=== PATIENT | female | born 1995 | race Caucasian/White ===

== ENCOUNTER 2017-03-12 18:00 | Emergency (ER) | payer OTHER ==
[2017-03-12 18:10] VITALS: BP 128/75
--- NOTE | 2017-03-12 18:53 | RAD ---
HISTORY: Cough, pneumonia COMPARISONS: None VIEWS: 2: Frontal dual-energy and lateral views of the chest. FINDINGS: CARDIOMEDIASTINAL SILHOUETTE: The cardiomediastinal silhouette is normal. SHAGGY: The shaggy are normal. PLEURA: The costophrenic angles are sharp. No pleural abnormalities are noted. LUNG PARENCHYMA: The lungs are clear. ABDOMEN: The upper abdomen is clear. There is no subphrenic gas. BONES AND SOFT TISSUES: No bone or soft tissue abnormalities are noted. OTHER: None. IMPRESSION: NO ACTIVE CARDIOPULMONARY DISEASE.
--- NOTE | 2017-03-12 22:49 | UC ---
Marcus Mera SooYoung, scribed for Robert Lazo MD on 03/12/17 at 1819 . Respiratory Complaint HPI - HPI Summary HPI Summary: A 21 y/o F presents to [facility] with c/o ongoing, nonproductive cough for past 10 days. Associated sx: CP associated to the cough. Denies: wheezing, SOB, fever, chills, bloody cough, rhinorrhea. Aggravating factors: laying down. She's been having difficulty sleeping due to the coughing. Has not been around anyone sick lately. Denies daily medications. Non-smoker. - History of Current Complaint Chief Complaint: UCRespiratory Stated Complaint: URI Time Seen by Provider: 03/12/17 18:18 Hx Obtained From: Patient Hx Last Menstrual Period: 02/27/17 Onset/Duration: Lasting Weeks - 10 days, Still Present Timing: Intermittent Episodes Severity Initially: Mild Severity Currently: Mild Pain Intensity: 0 Pain Scale Used: 0-10 Numeric Character: Cough: Nonproductive Aggravating Factors: Recumbent Position - Allergies/Home Medications Allergies/Adverse Reactions: Allergies Allergy/AdvReac Type Severity Reaction Status Date / Time No Known Allergies Allergy Verified 03/12/17 18:10 PMH/Surg Hx/FS Hx/Imm Hx Previously Healthy: Yes - neg: asthma - Surgical History Surgical History: None - Social History Alcohol Use: None Substance Use Type: None Smoking Status (MU): Never Smoked Tobacco - Immunization History Vaccination Up to Date: Yes Review of Systems Respiratory: Cough Cardiovascular: Chest Pain - due to constant cough All Other Systems Reviewed And Are Negative: Yes Physical Exam Triage Information Reviewed: Yes Vital Signs: Initial Vital Signs Temp 98.2 F 03/12/17 18:08 Pulse 67 03/12/17 18:08 Resp 16 03/12/17 18:08 BP 128/75 03/12/17 18:08 Pulse Ox 100 03/12/17 18:08 Vital Signs Reviewed: Yes - Additional Comments The patient is well-nourished in no acute distress and in no acute pain. The skin is warm and dry and skin color reflects adequate perfusion. HEENT: The head is normocephalic and atraumatic. The pupils are equal and reactive. The conjunctivae are clear and without drainage. Nares are patent and without drainage. Mouth reveals moist mucous membranes and the throat is without erythema and exudate. The external ears are intact. The ear canals are patent and without drainage. The tympanic membranes are intact. Neck is supple with full range of motion and non-tender. There are no carotid bruits. There is no neck vein distension. NO ADENOPATHY. Respiratory: Chest is non-tender. DECREASED BREATH SOUNDS. NO WHEEZING, RALES OR RHONCHI. Cardiovascular: Hear is regular rate and rhythm. There is no murmur or rub auscultated. There is no peripheral edema and pulses are symmetrical and equal. Abdomen: The abdomen is soft and non-tender. There are normal bowel sounds heard in all four quadrants and there is no organomegaly palpated. Musculoskeletal: There is no back pain noted. Extremities are non-tender with full range of motion. There is good capillary refill. There is no peripheral edema or calf tenderness elicited. Neurological: Patient is alert and oriented to person, place and time. The patient has symmetrical motor strength in all four extremities. Cranial nerves are grossly intact. Deep tendon reflexes are symmetrical and equal in all four extremities. Psychiatric: The patient has an appropriate affect and does not exhibit any anxiety or depression. UC Diagnostic Evaluation - Laboratory O2 Sat by Pulse Oximetry: 100 - Radiology Xray Interpretation: No Acute Changes - Impression: No active cardiopulmonary dz. Radiology Interpretation Completed By: Radiologist Respiratory Course/Dx - Course Course Of Treatment: Medications reviewed this visit. Normal BP reading and no follow-up instructions required. - Differential Dx/Diagnosis Differential Diagnosis/HQI/PQRI: Bronchitis, Lower Resp Infection Provider Diagnoses: Bronchitis Discharge - Discharge Plan Condition: Stable Disposition: HOME Prescriptions: Azithromycin TAB* [Zithromax TAB (Z-ROULA) 250 mg #6 tabs] 2 tab PO .TODAY, THEN 1 DAILY #1 roula Guaifenesin-Codeine [Guaiatussin AC] 10 syp PO Q6HR #120 syp MDD 40 Patient Education Materials: Azithromycin (By mouth), Acute Bronchitis (ED), Narcotic-Antitussive/Expectorant (By mouth) Referrals: Tommy Iqbal MD [Primary Care Provider] - The documentation as recorded by the Marcus chandler SooYoung accurately reflects the service I personally performed and the decisions made by me, Robert Lazo MD.
== END 2017-03-12 19:45 | disposition home or self-care (01) ==
LOC: UCEAST 18:00
DX: J40 Bronchitis, not specified as acute or chronic (principal)
CPT/HCPCS: 71020; 99212; G0463

== ENCOUNTER 2018-04-22 17:00 | Emergency (ER) | payer OTHER ==
[2018-04-22 17:15] VITALS: BP 122/79
--- NOTE | 2018-04-22 17:28 | UC ---
Lower Extremity/Ankle HPI - HPI Summary HPI Summary: This pt is a 22 y/o female presenting to [facility] c/o right second toe pain x6 days. Pt reports she was in heels all day 6 days ago. She denies any trauma or injuries. Since then pt states she has had right second toe pain. She rates her pain 6 out of 10 in severity. Denies fever, chills, knee pain. Denies any PMHx. - History of Current Complaint Chief Complaint: UCLowerExtremity Stated Complaint: TOE INJURY Time Seen by Provider: 04/22/18 17:17 Hx Obtained From: Patient Hx Last Menstrual Period: 02/27/17 Onset/Duration: Lasting Days, Still Present Severity Currently: Moderate Pain Intensity: 6 Pain Scale Used: 0-10 Numeric Aggravating Factor(s): Nothing Alleviating Factor(s): Nothing Able to Bear Weight: Yes - Allergies/Home Medications Allergies/Adverse Reactions: Allergies Allergy/AdvReac Type Severity Reaction Status Date / Time No Known Allergies Allergy Verified 04/22/18 17:15 PMH/Surg Hx/FS Hx/Imm Hx Other Endocrine History: DENIES: diabetes Other Cardiovascular History: DENIES: HTN - Surgical History Surgical History: None - Family History Known Family History: Negative: Cardiac Disease, Hypertension, Diabetes Family History: Mother: appendectomy - Social History Alcohol Use: None Substance Use Type: None Smoking Status (MU): Never Smoked Tobacco - Immunization History Vaccination Up to Date: Yes Review of Systems Constitutional: Negative Skin: Negative Eyes: Negative ENT: Negative Respiratory: Negative Cardiovascular: Negative Gastrointestinal: Negative Genitourinary: Negative Motor: Negative Neurovascular: Negative Musculoskeletal: Other: - R second toe pain Neurological: Negative Psychological: Negative All Other Systems Reviewed And Are Negative: Yes Physical Exam - Summary Physical Exam Summary: VITAL SIGNS: Reviewed. GENERAL: Patient is a well-developed and nourished female who is lying comfortable in the stretcher. Patient is not in any acute respiratory distress. HEAD AND FACE: Normocephalic EYES: PERRLA, EOMI x 2. EARS: Hearing grossly intact. MOUTH: Oropharynx within normal limits. NECK: Supple, trachea is midline, no adenopathy, no JVD, no carotid bruit. CHEST: Symmetric, no tenderness at palpation LUNGS: Clear to auscultation bilaterally. No wheezing or crackles. CVS: Regular rate and rhythm, S1 and S2 present, no murmurs or gallops appreciated. ABDOMEN: Soft, non-tender. Bowel sounds are normal. No abdominal abnormal pulsations. EXTREMITIES: Full ROM in all major joints, no edema, no cyanosis or clubbing. RLE: no ecchymosis, no hematoma, no deformity. NEURO: Alert and oriented x 3. No acute neurological deficits. Speech is normal and follows commands. SKIN: Dry and warm Triage Information Reviewed: Yes Vital Signs: Initial Vital Signs Temp 99.3 F 04/22/18 17:10 Pulse 85 04/22/18 17:10 Resp 16 04/22/18 17:10 BP 122/79 04/22/18 17:10 Pulse Ox 100 04/22/18 17:10 Vital Signs Reviewed: Yes Diagnostics - Radiology Right foot XR Xray Interpretation: No Acute Changes - IMPRESSION: No evidence for fracture. Dr. Valentin has reviewed this radiology report. Radiology Interpretation Completed By: Radiologist Lower Extremity Course/Dx - Course Course Of Treatment: Pt is a 22 y/o female presenting to [facility] c/o right second toe pain x6 days. Pt reports she was in heels all day 6 days ago. She denies any trauma or injuries. Since then pt states she has had right second toe pain. She rates her pain 6 out of 10 in severity. Denies any PMHx. In the UC course the pt was given ibuprofen for the pain. Right foot XR shows no evidence for fracture. Therefore pt will be discharged home with a post-op shoe and a prescription for Naproxen. Pt was instructed to return to the urgent care or go to ER immediately if any of the symptoms worsen. Plan of care was discussed with the patient and pt understands and agrees. All questions were answered to patient satisfaction. There were no further complaints or concerns. Pt will be discharged to home with follow up from PCP. Pt is hemodynamically stable, alert and oriented x3. - Differential Dx/Diagnosis Provider Diagnoses: Toe pain Discharge - Sign-Out/Discharge Documenting (check all that apply): Patient Departure - Discharge - Discharge Plan Condition: Stable Disposition: HOME Prescriptions: Naproxen [Naprosyn 500 mg tab] 500 mg PO BID #20 tablet Patient Education Materials: Arthralgia (ED) Referrals: Tommy Iqbal MD [Primary Care Provider] - Additional Instructions: Take Acetaminophen or ibuprofen for pain or fever Increase your fluid intake Return to the UC or go to the emergency department if symptoms worsen Follow-up with primary care physician in next 2-3 days
--- NOTE | 2018-04-22 17:53 | RAD ---
INDICATION: Right foot pain. TECHNIQUE: 2 views of the right foot were obtained. FINDINGS: The bones are normal alignment. No fracture is seen. Joint spaces appear maintained. IMPRESSION: NO EVIDENCE FOR FRACTURE.
[2018-04-22] MEDS ORDERED: Ibuprofen TAB* 400 MG PO ONE (18:16)
== END 2018-04-22 18:32 | disposition home or self-care (01) ==
LOC: UCEAST 17:00
DX: M79.674 Pain in right toe(s) (principal)
CPT/HCPCS: 99212; A9270-GY; G0463

== ENCOUNTER 2018-06-11 00:21 | Emergency (ER) | payer SELFPAY ==
[2018-06-11] MEDS ORDERED: Ondansetron ODT TAB* 4 MG SL ONE (00:41)
[2018-06-11] MEDS ORDERED: Ondansetron ODT TAB* 4 MG PO ONE (00:48)
--- NOTE | 2018-06-11 01:37 | ED ---
Substance Abuse/Use - HPI Summary HPI Summary: 22-year-old female presents wit nausea and vomiting today. States she had a marijuana cookie. States it started after that. She felt tired so she took a nap. States she woke up and she felt like her heart was racing. Her heart is now not racing. She admits to numbness and tingling in all extremities. She denies any shortness breath. Denies any bowel pain. States she's vomited a couple times. States she just doesn't feel right. States she feels out of it. She admits to mild headache. no fevers. she has never had these symptoms before. She has never had marijuana before. no one else with similar symptoms. she denies any other substance. - History Of Current Complaint Chief Complaint: EDTraceeuseaVomitDiarrh Stated Complaint: NAUSEA/VOMITING Time Seen by Provider: 06/11/18 00:30 Hx Last Menstrual Period: 02/27/17 - Allergies/Home Medications Allergies/Adverse Reactions: Allergies Allergy/AdvReac Type Severity Reaction Status Date / Time No Known Allergies Allergy Verified 06/11/18 00:25 PMH/Surg Hx/FS Hx/Imm Hx Endocrine/Hematology History: Denies: Hx Diabetes, Hx Thyroid Disease Cardiovascular History: Denies: Hx Hypertension Respiratory History: Denies: Hx Asthma, Hx Chronic Obstructive Pulmonary Disease (COPD) GI History: Denies: Hx Ulcer Infectious Disease History: No Infectious Disease History: Denies: Hx Clostridium Difficile, Hx Hepatitis, Hx Human Immunodeficiency Virus (HIV), Hx of Known/Suspected MRSA, Hx Tuberculosis, Hx Known/Suspected VRE , History Other Infectious Disease, Traveled Outside the [place] in Last 30 Days - Family History Known Family History: Negative: Cardiac Disease, Hypertension, Diabetes Family History: Mother: appendectomy - Social History Alcohol Use: None Substance Use Type: Reports: Marijuana Substance Use Comment - Amount & Last Used: marijuana cookie ingestion Smoking Status (MU): Never Smoked Tobacco Review of Systems Negative: Fever Negative: Chest Pain Negative: Shortness Of Breath Positive: Vomiting, Nausea. Negative: Abdominal Pain, Diarrhea Positive: Paresthesia All Other Systems Reviewed And Are Negative: Yes Physical Exam Triage Information Reviewed: Yes Vital Signs On Initial Exam: Initial Vitals Temp Pulse Resp BP Pulse Ox 99.2 F 87 20 131/72 100 06/11/18 00:24 06/11/18 00:24 06/11/18 00:24 06/11/18 00:24 06/11/18 00:24 Vital Signs Reviewed: Yes Appearance: Positive: Well-Appearing Skin: Positive: Warm, Dry Head/Face: Positive: Normal Head/Face Inspection Eyes: Positive: Normal, Conjunctiva Clear ENT: Positive: Pharynx normal Respiratory/Lung Sounds: Positive: Clear to Auscultation, Breath Sounds Present Cardiovascular: Positive: Normal, RRR Abdomen Description: Positive: Nontender, Soft Bowel Sounds: Positive: Present Musculoskeletal: Positive: Normal Neurological: Positive: Sensory/Motor Intact, CN Intact II-III Psychiatric: Positive: Normal Diagnostics - Vital Signs Vital Signs Temp Pulse Resp BP Pulse Ox 06/11/18 00:40 92 118/76 96 06/11/18 00:39 86 96 06/11/18 00:24 99.2 F 87 20 131/72 100 - Laboratory Lab Statement: Any lab studies that have been ordered have been reviewed, and results considered in the medical decision making process. Re-Evaluation - Re-Evaluation First Eval Re-Evaluation Time: 01:56 Change: Improved Comment: no longer nausous, is tired. discussed with dad will take home to sleep it off Course/Dx - Course Course Of Treatment: 22-year-old female presents wit nausea and vomiting today. States she had a marijuana cookie. States it started after that. She felt tired so she took a nap. States she woke up and she felt like her heart was racing. Her heart is now not racing. She admits to numbness and tingling in all extremities. She denies any shortness breath. Denies any bowel pain. States she's vomited a couple times. States she just doesn't feel right. States she feels out of it. She admits to mild headache. no fevers. she has never had these symptoms before. She has never had marijuana before. no one else with similar symptoms. On exam patient appears groggy. Normal neuro exam. Lungs clear to auscultation. Heart regular rate and rhythm. Abdomen soft nontender. Gave Zofran and able to tolerate some mitzi jeanine. Discussed with dad that symptoms are due to the marijuana. Discussed that these are normal symptoms of ingestion and vital here are stable. told dad to have her get some rest. Dad understands agrees with plan. - Diagnoses Differential Diagnosis/HQI/PQRI: Positive: Alcohol Abuse, Anxiety, Drug Abuse Provider Diagnoses: Adverse effect of cannabis Discharge - Sign-Out/Discharge Documenting (check all that apply): Patient Departure - Discharge Plan Condition: Good Disposition: HOME Patient Education Materials: Cannabis Abuse (ED) Referrals: Tommy Iqbal MD [Primary Care Provider] - Additional Instructions: take zofran every 6 hours as needed for nausea Encourage fluids Take a hot shower Return to ED if develop any new or worsening symptoms - Billing Disposition and Condition Condition: GOOD Disposition: Home
[2018-06-11 01:41] VITALS: BP 94/52
[2018-06-11] MEDS ORDERED: O ndansetron ODT 4MG 2TAB PRPK 4 MG PAK PO ONE (01:55)
== END 2018-06-11 02:05 | disposition home or self-care (01) ==
LOC: ED 00:21
DX: R11.2 Nausea with vomiting, unspecified (principal); T40.7X5A Adverse effect of cannabis (derivatives), initial encounter; Y92.9 Unspecified place or not applicable
CPT/HCPCS: 99282; A9270-GY